=== PATIENT | female | born 1990 | race Caucasian/White ===

== ENCOUNTER 2016-09-13 21:19 | Emergency (ER) | payer OTHER ==
--- NOTE | 2016-09-14 05:33 | ER ---
ADMIT: 09/13/2016 RM/LOC: ER [facility] MR#: [id number] [address] [id number] ELIE SANTIZO [address] [place] [address] Emergency Room Report SEX: F AGE: 26 : 1990 DATE: 09/13/2016 HISTORY OF PRESENT ILLNESS: The patient is a 26-year-old female with no significant past medical history, came to the ER with chief complaint of left distal phalanx volar part of the 4th finger laceration. The laceration happened while allegedly the son-in-law pulled the bracelet and caused the laceration. The patient denies any other trauma. The incident happened just before coming to hospital. PHYSICAL EXAMINATION: HEAD, NECK, CHEST, ABDOMEN, PELVIS: Noncontributory. NEUROLOGIC: The patient had normal motor and sensory. There were no tendon injuries, no active bleeding. Neurovascular intact and superficial sensation is also intact. There is a 2 cm irregular laceration on the distal phalanx of the 4th finger on the volar part, which is superficial. There were no foreign bodies. There are no tendon injuries and deep and superficial tendon exam are also normal too. The wound was irrigated, anesthetized and repaired per procedure note, 1 layer with Prolene 5.0 sutures. PLAN: The patient received tetanus shot in the ER and was discharged to home with wound care handout. Follow up with the primary doctor as needed. Follow up in 7-10 days for wound check and suture removal. Mejia Aiken MD/ jamir JOB #: [id number] CC: Mejia Aiken MD, Attending Physician Nika Rubi MD, Family Physician
== END 2016-09-13 22:50 | disposition home or self-care (01) ==
LOC: ER 21:19
PROC: 0HQGXZZ Repair Left Hand Skin, External Approach (ICD-10-PCS; principal; 2016-09-13)
DX: S61.215A Laceration without foreign body of left ring finger without damage to nail, initial encounter (principal); Z23 Encounter for immunization; Z79.899 Other long term (current) drug therapy; W45.8XXA Other foreign body or object entering through skin, initial encounter